=== PATIENT | female | born 1960 | race Caucasian/White ===

== ENCOUNTER 2022-01-04 15:59 | Emergency (ER) | payer OTHER, MEDICAID ==
[~2022-01-04] VITALS: Ht 167.6 cm; Wt 77.1 kg
[2022-01-04] MEDS ORDERED: LORAZEPAM 0.5 MG TABLET PO ONE (16:30)
[2022-01-04 17:10] LABS: HEMATOCRIT 41.9 % (31.2-41.9); MEAN CORPUSCULAR HEMOGLOBIN 25.6 uug (24.7-32.8); MEAN CORPUSCULAR VOLUME 79.4 fL (75.5-95.3); PLATELET COUNT (AUTO) 353 K/uL (179-408)
[2022-01-04 17:28] LABS: CARBON DIOXIDE 29 mmol/L (21-32); CHLORIDE 105 mmol/L (98-107); CREATININE 0.9 mg/dL (0.6-1.3); GLUCOSE 104 mg/dL (74-106); POTASSIUM 4.2 mmol/L (3.5-5.1); UREA NITROGEN, BLOOD 7 mg/dL (7-18)
[2022-01-04] MEDS ORDERED: LORAZEPAM 0.5 MG TABLET ONE (18:14)
== END 2022-01-04 18:33 | disposition home or self-care (01) ==
LOC: ER 16:03
DX: F41.9 Anxiety disorder, unspecified (principal); R07.9 Chest pain, unspecified; F31.9 Bipolar disorder, unspecified
CPT/HCPCS: 36415; 71045; 84484; 85025; 93005; A4663